=== PATIENT | male | born 1975 | race Caucasian/White ===

== ENCOUNTER → 2017-10-05 16:45 | Outpatient (REF) | payer BC, SELFPAY ==
[2017-10-05 22:54] LABS: TSH 0.95 uIU/mL (0.358-3.74)
== END ==
LOC: NCHCN 16:45
PROVIDERS: PCP Registered Nurse; Visit Provider Registered Nurse
DX: E89.0 Postprocedural hypothyroidism (principal)
CPT/HCPCS: 84443

== ENCOUNTER 2018-01-18 18:05 | Outpatient (REF) | payer BC, SELFPAY ==
[2018-01-18 19:36] LABS: Cholesterol 258 mg/dL (50-200); HDL Cholesterol 44 mg/dL (40-60); LDL CHOLESTEROL 198 mg/dL (<100); Triglyceride 164 mg/dL (30-150)
== END 2018-01-18 18:25 ==
LOC: NCHCN 18:05
PROVIDERS: PCP Registered Nurse; Visit Provider Registered Nurse
DX: Z00.00 Encounter for general adult medical examination without abnormal findings (principal); Z13.220 Encounter for screening for lipoid disorders
CPT/HCPCS: 80061; 83721

== ENCOUNTER 2019-10-31 10:47 | Outpatient (REF) | payer BC, SELFPAY ==
[2019-10-31 22:51] LABS: Albumin 3.8 g/dL (3.4-5.0); Calcium 6.7 mg/dL (8.5-10.1); Magnesium 2.1 mg/dL (1.8-2.4); TSH 6.36 uIU/mL (0.36-3.74)
[2019-10-31 23:00] LABS: PHOSPHORUS 4.3 mg/dL (2.6-4.7)
[2019-11-01 18:09] LABS: CEA 41.6 ng/mL (See Note)
== END 2019-10-31 11:07 ==
LOC: NCHCN 10:47
PROVIDERS: PCP Registered Nurse; Visit Provider Registered Nurse
DX: E83.51 Hypocalcemia (principal); E89.0 Postprocedural hypothyroidism; C73 Malignant neoplasm of thyroid gland
CPT/HCPCS: 82040; 82310; 82378; 83735; 84100; 84443

== ENCOUNTER 2020-06-16 16:17 | Outpatient (REF) | payer BC, SELFPAY ==
[2020-06-18 12:52] LABS: COVID-19 RT-PCR UVMMC Result Negative (Negative)
== END 2020-06-16 16:18 | disposition home or self-care (01) ==
LOC: NCHCN 16:17
PROVIDERS: PCP Registered Nurse; Visit Provider Internal Medicine
DX: Z20.822 Contact with and (suspected) exposure to COVID-19 (principal); R09.81 Nasal congestion
CPT/HCPCS: U0003

== ENCOUNTER 2021-10-01 16:10 | Outpatient (REF) | payer BC, SELFPAY ==
[2021-10-01 16:38] LABS: HCT 44.8 % (40.0-50.0); MCH 30.4 pg (27.0-33.0); MCHC 33.5 % (32.0-36.0); MCV 91 fL (80-95); MPV 10.7 fL (8.0-11.0); Platelet Count 337 10^3/uL (130-400); RBC 4.94 10^6/uL (4.36-5.78); RDW 13.2 % (11.8-14.1); RDW-SD 43.7 fL; WBC 6.61 10^3/uL (4.4-10.8)
[2021-10-01 17:08] LABS: ALT 50 U/L (16-63); AST 24 U/L (15-37); Albumin 3.8 g/dL (3.4-5.0); Alkaline Phosphatase 154 U/L (46-116); Anion Gap 10.2 mmol/L (3-11); BUN 14 mg/dL (7-18); Bilirubin, Total 0.2 mg/dL (0.2-1.0); CO2 28.8 mmol/L (21.0-32.0); Calcium 7.2 mg/dL (8.5-10.1); Calculated LDL 177 mg/dL (<100); Chloride 102 mmol/L (98-107); Cholesterol 243 mg/dL (<200); Glucose 97 mg/dL (74-106); HDL Cholesterol 47 mg/dL (40-60); Potassium 3.9 mmol/L (3.5-5.1); Sodium 141 mmol/L (136-145); Total Protein 7.5 g/dL (6.4-8.2); Triglyceride 98 mg/dL (<150)
[2021-10-01 17:22] LABS: Vitamin D 25 Total 15.8 ng/mL (30-100)
[2021-10-05 10:09] LABS: Hepatitis C Ab w Rflx HCV PCR Negative (Negative)
[2021-10-05 10:15] LABS: CEA 52.9 ng/mL (See Note)
== END 2021-10-01 16:11 | disposition home or self-care (01) ==
LOC: NCHCN 16:10
PROVIDERS: PCP Registered Nurse; Visit Provider Registered Nurse
DX: C73 Malignant neoplasm of thyroid gland (principal); E89.2 Postprocedural hypoparathyroidism; E89.0 Postprocedural hypothyroidism
CPT/HCPCS: 80053; 80061; 82306; 85027; 86803; 82378; 84443

== ENCOUNTER 2022-05-14 19:02 | Outpatient (REF) | payer BC, SELFPAY ==
[2022-05-14 21:40] LABS: Abs Immature Grans 0.03 10^3/uL (0.0-0.06); Absolute Basophil Count 0.07 10^3/uL (0.0-0.2); Absolute Lymphocyte Count 1.26 10^3/uL (1.2-3.4); Absolute Monocyte Count 0.64 10^3/uL (0.1-0.8); Absolute Neutrophil Count 4.49 10^3/uL (1.2-6.7); HCT 45.8 % (40.0-50.0); Immature Grans % 0.4; Lymphocytes % 18.8; MCH 30.4 pg (27.0-33.0); MCHC 32.8 % (32.0-36.0); MCV 93 fL (80-95); MPV 11.1 fL (8.0-11.0); Monocytes % 9.6; Neutrophils % 67.2; Platelet Count 309 10^3/uL (130-400); RBC 4.94 10^6/uL (4.36-5.78); RDW 13.2 % (11.8-14.1); RDW-SD 45.1 fL; WBC 6.69 10^3/uL (4.4-10.8)
[2022-05-14 21:55] LABS: ALT 55 U/L (16-63); AST 26 U/L (15-37); Albumin 3.8 g/dL (3.4-5.0); Alkaline Phosphatase 131 U/L (46-116); BUN 16 mg/dL (7-18); Bilirubin, Total 0.3 mg/dL (0.2-1.0); CREATININE 1.3 mg/dL (0.70-1.30); Calcium 7.2 mg/dL (8.5-10.1); Chloride 105 mmol/L (98-107); Estimated GFR 67.76 (mL/min/1.73m2); Glucose 72 mg/dL (74-106); Potassium 4.3 mmol/L (3.5-5.1); Sodium 141 mmol/L (136-145); Total Protein 7.7 g/dL (6.4-8.2)
[2022-05-14 22:09] LABS: Vitamin D 25 Total 9.8 ng/mL (30-100)
[2022-05-17 11:13] LABS: CEA 68.7 ng/mL (See Note)
== END 2022-05-14 19:03 | disposition home or self-care (01) ==
LOC: NCHCN 19:02
PROVIDERS: PCP Registered Nurse; Visit Provider Registered Nurse
DX: E89.0 Postprocedural hypothyroidism (principal); E78.5 Hyperlipidemia, unspecified; E89.2 Postprocedural hypoparathyroidism; E83.51 Hypocalcemia
CPT/HCPCS: 80053; 82306; 82378; 84443; 85025

== ENCOUNTER 2022-12-13 20:04 | Outpatient (REF) | payer BC, SELFPAY ==
[2022-12-13 18:01] LABS: Calculated LDL 198 mg/dL (<100); Cholesterol 269 mg/dL (<200); HDL Cholesterol 54 mg/dL (40-60); Triglyceride 86 mg/dL (<150)
--- OUTSIDE RECORDS SUMMARY | 2022-12-13 20:08 | XMS_ITS | CCD ---
Author Name Unknown Address [address] [place] [address] [phone] Organization Unknown Address [address] [place] [address] [phone] Care Team Providers Care Director Corporate Security Name Role Phone JEM MORATAYA Attending Physician [phone] Vital Signs Unknown or Not Available. Allergies Allergy Code Allergy Type Reaction Status No Known Allergies 0 No known allergies Active Procedures Unknown or Not Available. History of Immunizations Unknown or Not Available. Problems Unknown or Not Available. Results Unknown or Not Available. Active Medications Unknown or Not Available. Medications Administered During Visit Unknown or Not Available. Encounters Encounter Diagnosis Diagnosis Code Start Date Canceled operative procedure [id number] Social History Smoking Status Code Start Date End Date Former smoker [id number] Patient Decision Aids Unknown or Not Available. Discharge Instructions You were admitted to [facility] on 05/27/2022 13:54 with a principal diagnosis of Procedure and treatment not carried out, unspecified reason You were discharged from [facility] on 05/27/2022 13:54 Should you have any questions prior to discharge, please contact a member of your healthcare team. If you have left the hospital and have any questions, please contact your primary care physician. Chief Complaint and Reason For Visit Unknown or Not Available. Function Status Unknown or Not Available. Plan of Care Unknown or Not Available. Referral/Transition of Care Unknown or Not Available.
== END 2022-12-13 20:05 | disposition home or self-care (01) ==
LOC: NCHCN 20:04
PROVIDERS: PCP Registered Nurse; Visit Provider Registered Nurse
DX: E78.5 Hyperlipidemia, unspecified (principal)
CPT/HCPCS: 80061

== ENCOUNTER 2025-01-18 14:16 | Outpatient (REF) | payer BC, SELFPAY ==
[2025-01-18 15:28] LABS: TSH 54.40 uIU/mL (0.55-4.78)
[2025-01-18 15:31] LABS: ALT 61 U/L (10-49); AST 40 U/L (<34); Albumin 4.2 g/dL (3.4-5.0); Alkaline Phosphatase 128 U/L (46-116); Anion Gap 9.4 mmol/L (3-11); BUN 18 mg/dL (9-23); Bilirubin, Total 0.30 mg/dL (0.2-1.2); CO2 29.6 mmol/L (20.0-31.0); Calcium 7.0 mg/dL (8.3-10.6); Chloride 103 mmol/L (98-107); Cholesterol 198 mg/dL (<200); Glucose 153 mg/dL (74-106); HDL Cholesterol 41 mg/dL (>40); Potassium 3.8 mmol/L (3.5-5.1); Sodium 142 mmol/L (136-145); Total Protein 6.9 g/dL (5.7-8.2)
== END 2025-01-18 14:17 | disposition home or self-care (01) ==
LOC: NCHCN 14:16
PROVIDERS: PCP Registered Nurse; Visit Provider Family Medicine
DX: R03.0 Elevated blood-pressure reading, without diagnosis of hypertension (principal); E03.9 Hypothyroidism, unspecified; E78.5 Hyperlipidemia, unspecified
CPT/HCPCS: 80053; 80061; 84443